=== PATIENT | male | born 1940 | race Caucasian/White ===

== ENCOUNTER 2019-11-27 14:36 | Emergency (ER) | payer OTHER ==
[~2019-11-27] VITALS: Ht 172.7 cm; Wt 80.7 kg
[2019-11-27 14:40] VITALS: Ht 172.7 cm; Wt 80.7 kg
[2019-11-27 15:05] LABS: BASOPHIL % 0.3 % (0-2); PLATELET COUNT 179 x10^3mcL (130-400); RED CELL DISTRIBUTION WIDTH 14.2 % (11.5-14.5)
[2019-11-27 15:33] LABS: CALCIUM 8.2 mg/dL (8.5-10.1); CHLORIDE SERUM 101 mmol/L (98-107); CREATININE SERUM 1.7 mg/dL (0.7-1.3); GLUCOSE SERUM 310 mg/dL (74-106); POTASSIUM SERUM 4.1 mmol/L (3.5-5.1); SODIUM SERUM 136 mmol/L (136-145)
[2019-11-27 15:43] LABS: ALKALINE PHOSPHATASE 109 U/L (46-116); ALT/SGPT 21 U/L (16-63); AST/SGOT 23 U/L (15-37); BILIRUBIN TOTAL 0.6 mg/dL (0.20-1.00); CHOLESTEROL 145 mg/dL (<200); TOTAL PROTEIN, SERUM 6.9 g/dL (6.4-8.2)
[2019-11-27 15:44] LABS: ALBUMIN 3.3 g/dL (3.4-5.0)
[2019-11-27 17:49] VITALS: BP 139/49
== END 2019-11-27 17:49 | disposition home or self-care (01) ==
LOC: ED 14:36
PROVIDERS: Specialist
DX: R42 Dizziness and giddiness (principal); N28.9 Disorder of kidney and ureter, unspecified; E11.9 Type 2 diabetes mellitus without complications; Z98.890 Other specified postprocedural states
CPT/HCPCS: 82962; G0480; J7030; Q0092